=== PATIENT | male | born 2000 | race Two or more races ===

== ENCOUNTER 2023-05-15 15:01 | Inpatient (IN) | payer MEDICAID, OTHER ==
[~2023-05-15] VITALS: Ht 172.7 cm; Wt 64.6 kg
[2023-05-15] MEDS ORDERED: SERT-439 PO (15:26)
[2023-05-15] MEDS ORDERED: LORA-999 PO (15:26)
[2023-05-15] MEDS ORDERED: QUET200T30 PO (15:26)
[2023-05-15] MEDS ORDERED: OMEP20CA12 PO (15:26)
[2023-05-15] MEDS ORDERED: MIRT-92 PO (15:26)
[2023-05-15] MEDS ORDERED: MONT-40 PO (15:26)
[2023-05-15] MEDS ORDERED: RISP3TAB35 PO (15:26)
[2023-05-15] MEDS ORDERED: DIVA-85 PO ×2 (15:26)
[2023-05-15 15:48] LABS: BASOPHILS % (AUTO) 0.8 % (0.0-2.0); EOSINOPHILS % (AUTO) 0.5 % (1.0-6.0); HEMATOCRIT 37.3 % (41-53); HEMOGLOBIN 13.3 g/dL (13.5-17.5); LYMPHOCYTES # (AUTO) 1.6 K/uL (1.0-4.8); LYMPHOCYTES % (AUTO) 37.4 % (22.0-44.0); MEAN CORPUSCULAR HEMOGLOBIN 34.2 pg (26.0-34.0); MEAN CORPUSCULAR HGB CONC 35.8 G/dL (31.0-37.0); MEAN CORPUSCULAR VOLUME 96 fL (80-100); MONOCYTES # (AUTO) 0.4 K/uL (0.1-1.0); MONOCYTES % (AUTO) 9.6 % (2.0-9.0); NEUTROPHILS # (AUTO) 2.2 K/uL (1.8-7.7); NEUTROPHILS % (AUTO) 51.7 % (40.0-70.0); PLATELET COUNT (AUTO) 159 K/uL (150-450); RED BLOOD CELL COUNT(AUTO) 3.91 MIL/uL (4.50-5.90); WHITE BLOOD COUNT (AUTO) 4.3 K/uL (4.5-11.0)
[2023-05-15 15:56] LABS: ANION GAP 11 mmol/L (8-16); CALCIUM, TOTAL 9.2 mg/dL (8.8-10.5); CARBON DIOXIDE 26 mmol/L (22-29); CHLORIDE 104 mmol/L (98-107); CREATININE 0.91 mg/dL (0.60-1.30); GLOMERULAR FILTR. RATE CALC > 60 mL/min (>60); GLUCOSE,RANDOM 156 mg/dL (70-110); POTASSIUM 3.2 mmol/L (3.5-5.1); SODIUM SERUM 141 mmol/L (136-145); UREA NITROGEN, BLOOD 7 mg/dL (7-18)
[2023-05-15 15:57] LABS: ALCOHOL, BLOOD (SERUM) < 3 mg/dL (0-10)
[2023-05-15 16:04] LABS: ALANINE AMINOTRANSFERASE 24 U/L (12-78); ALBUMIN 3.7 g/dL (3.4-5.0); ALKALINE PHOSPHATASE 70 U/L (46-116); ASPARTATE AMINOTRANSFERASE 15 U/L (15-37); BILIRUBIN,TOTAL 0.3 mg/dL (0.1-1.0)
[2023-05-15 17:03] LABS: PH,URINE DRUG SCREEN 6.5 (5.0-8.0)
[2023-05-15 17:10] LABS: ALCOHOL, URINE DRUG SCREEN NEGATIVE (NEGATIVE); AMPHET/METH SCREEN,URINE NEGATIVE (NEGATIVE); BARBITURATE SCREEN, URINE NEGATIVE (NEGATIVE); BENZODIAZEPINES SCREEN,URINE NEGATIVE (NEGATIVE); CANNABINOID SCREEN,URINE NEGATIVE (NEGATIVE); COCAINE SCREEN,URINE NEGATIVE (NEGATIVE); METHADONE SCREEN, URINE NEGATIVE (NEGATIVE); OPIATE SCREEN,URINE NEGATIVE (NEGATIVE); PHENCYCLIDINE SCREEN,URINE NEGATIVE (NEGATIVE)
[2023-05-15] MEDS: POTASSIUM CHLORIDE 20 MEQ ER TABLET PO ONE (18:55)
[2023-05-15 19:27] LABS: COVID AG,FIA SOURCE NASAL SWAB
[2023-05-15 19:29] LABS: APPEARANCE,URINE CLEAR (CLEAR); BILIRUBIN,URINE NEGATIVE (NEGATIVE); COLOR,URINE COLORLESS (YELLOW); GLUCOSE, URINE (UA) NEGATIVE (NEGATIVE); KETONES,URINE NEGATIVE (NEGATIVE); LEUKOCYTE ESTERASE ,URINE NEGATIVE (NEGATIVE); NITRATE,URINE NEGATIVE (NEGATIVE); OCCULT BLOOD,URINE NEGATIVE (NEGATIVE); PROTEIN,URINE NEGATIVE (NEGATIVE); UROBILINOGEN,URINE <=1.0 mg/dL (<=1.0)
[2023-05-15 19:57] LABS: SARS-COV2 (COVID) ANTIGEN,FIA Negative (Negative)
[2023-05-16] MEDS: ZOLPIDEM TARTRATE 10 MG TABLET PO PRN (00:16)
[2023-05-16] MEDS: HALOPERIDOL 5 MG TABLET PO PRN (00:17)
[2023-05-16] MEDS: LORazepam 2 MG TABLET PO PRN (00:17)
[2023-05-16] MEDS ORDERED: DIVA500T53 PO ×2 (14:39)
[2023-05-16] MEDS: DIVALPROEX SODIUM 500 MG ER TABLET PO ONE (16:15)
[2023-05-16] MEDS: SERTRALINE HCL 50 MG TABLET PO ONE (16:15)
[2023-05-16] MEDS: RisperiDONE 1 MG TABLET PO ONE (16:15)
[2023-05-17] MEDS: QUEtiapine FUMARATE 100 MG TABLET PO ONE (00:11)
[2023-05-17] MEDS: POTASSIUM CHLORIDE 20 MEQ ER TABLET PO ONE (00:12)
[2023-05-17] MEDS: DIVALPROEX SODIUM 500 MG ER TABLET PO ONE (00:12)
[2023-05-17] MEDS: RisperiDONE 1 MG TABLET PO ONE (00:12)
[2023-05-17 03:38] VITALS: BP 113/82; PULSE 125; RESP 16; TEMP 97.1; O2SAT 97
[2023-05-17] MEDS ORDERED: PETROLATUM,WHITE 28 GM JELLY TP PRN (07:15)
[2023-05-17] MEDS ORDERED: DOCUSATE SODIUM 100 MG CAPSULE PO PRN (07:15)
[2023-05-17] MEDS ORDERED: CloNIDine HCL 0.1 MG TABLET PO PRN (07:15)
[2023-05-17] MEDS ORDERED: LOPERAMIDE HCL 2 MG CAPSULE PO PRN (07:15)
[2023-05-17] MEDS ORDERED: MAGNESIUM HYDROXIDE SUSPENSION 30 ML UDCUP PO PRN (07:15)
[2023-05-17] MEDS ORDERED: ALBUTEROL SULFATE HFA 90 MCG/PUFF 8 GM INHALER IH PRN (07:15)
[2023-05-17] MEDS ORDERED: NICOTINE 14 MG/24 HOUR PATCH TD PRN (07:15)
[2023-05-17] MEDS ORDERED: GuaiFENesin/D-METHORPHAN [SUGAR-FREE] 200-20MG/10 ML SYRUP UDCUP PO PRN (07:15)
[2023-05-17] MEDS ORDERED: ACETAMINOPHEN 325 MG TABLET PO PRN (07:15)
[2023-05-17] MEDS ORDERED: IBUPROFEN 400 MG TABLET PO PRN (07:15)
[2023-05-17] MEDS ORDERED: MAG HYDROX/ALUMINUM HYD/SIMETH ES 30 ML SUSPENSION UDCUP PO PRN (07:15)
[2023-05-17] MEDS ORDERED: ONDANSETRON HCL 4 MG TABLET PO PRN (07:15)
[2023-05-17 08:25] VITALS: BP 101/56; PULSE 92; RESP 18; TEMP 97.9; O2SAT 99
[2023-05-17] MEDS ORDERED: MONTELUKAST SODIUM 10 MG TABLET PO SCH (09:00)
[2023-05-17] MEDS: MONTELUKAST SODIUM 10 MG TABLET PO SCH (09:00)
[2023-05-17] MEDS: SERTRALINE HCL 50 MG TABLET PO SCH (12:00)
[2023-05-17] MEDS: DIVALPROEX SODIUM 500 MG ER TABLET PO SCH ×2 (12:00→21:05)
[2023-05-17] MEDS: LORazepam 0.5 MG TABLET PO SCH (12:19)
[2023-05-17] MEDS: RisperiDONE 3 MG TABLET PO SCH (16:41)
[2023-05-17] MEDS: MIRTAZAPINE 15 MG TABLET PO SCH (21:05)
[2023-05-17] MEDS: QUEtiapine FUMARATE 200 MG TABLET PO SCH (21:06)
[2023-05-17 21:20] VITALS: BP 118/67; PULSE 70; RESP 16; TEMP 97.8; O2SAT 99
[2023-05-18 08:38] LABS: HEMOGLOBIN A1C 4.9 % (3.8-5.6)
[2023-05-18 09:00] VITALS: BP 116/71; PULSE 120; RESP 18; TEMP 98.4; O2SAT 97
[2023-05-18 09:28] LABS: CHOL/HDL RATIO 2.3 (4.2-7.3); THYROID STIMULATING HORMONE 1.54 uIU/mL (0.36-3.74)
[2023-05-18 10:00] VITALS: BP 111/75; PULSE 111; RESP 18; TEMP 98.2; O2SAT 98
[2023-05-18 20:24] VITALS: BP 129/76; PULSE 86; RESP 19; TEMP 97.6; O2SAT 99
[2023-05-19 08:09] VITALS: BP 110/69; PULSE 103; RESP 18; TEMP 97.9; O2SAT 100
[2023-05-19] MEDS ORDERED: MIRT-89 PO (11:25)
[2023-05-19] MEDS ORDERED: QUET200T30 PO (11:25)
[2023-05-19] MEDS ORDERED: LORA-999 PO (11:25)
[2023-05-19] MEDS ORDERED: MONT-35 PO (11:25)
[2023-05-19] MEDS ORDERED: DIVA500T69 PO ×2 (11:25)
[2023-05-19] MEDS ORDERED: RISP3TAB77 PO (11:26)
[2023-05-19] MEDS ORDERED: SERT-439 PO (11:26)
== END 2023-05-19 18:35 | disposition home or self-care (01) | DRG 750 ==
LOC: EMS 15:06 → B3A 05-17 00:04 → EMS 05-17 02:05 → B3A 05-17 02:05
PROVIDERS: ADMIT Psychiatry & Neurology Psychiatry; ATTEND Psychiatry & Neurology Psychiatry
PROC: GZHZZZZ Group Psychotherapy (ICD-10-PCS; principal; 2023-05-19)
PROC: GZ51ZZZ Individual Psychotherapy, Behavioral (ICD-10-PCS; 2023-05-19)
DX: F25.0 Schizoaffective disorder, bipolar type (principal); F79 Unspecified intellectual disabilities; E87.6 Hypokalemia; F84.0 Autistic disorder; Z20.822 Contact with and (suspected) exposure to COVID-19; F41.9 Anxiety disorder, unspecified; G47.00 Insomnia, unspecified; Z79.899 Other long term (current) drug therapy; Z91.010 Allergy to peanuts
CPT/HCPCS: 80053; 80061; 80307; 81003; 83036; 84443; 85025; 99285; G0480

== ENCOUNTER 2023-07-18 19:11 | Inpatient (IN) | payer MEDICAID ==
[~2023-07-18] VITALS: Ht 172.7 cm; Wt 63.6 kg
[~2023-07-18 19:11] MED LIST: DIVA500T69 PO; MIRT-89 PO; MONT-35 PO; QUET200T30 PO; RISP3TAB77 PO; SERT-439 PO
[2023-07-18] MEDS ORDERED: ZOLPIDEM TARTRATE 10 MG TABLET PO PRN (19:30)
[2023-07-18 19:45] LABS: GLUCOMETER DEV NAME(LOC) POC.BV; POC SARS-COV2 AG, FIA NEGATIVE (NEGATIVE)
[2023-07-18 22:32] VITALS: BP 128/79; PULSE 100; RESP 18; TEMP 97.8; O2SAT 99
[2023-07-19] MEDS: HALOPERIDOL 5 MG TABLET PO PRN (07:48)
[2023-07-19] MEDS: LORazepam 2 MG TABLET PO PRN (07:48)
[2023-07-19 08:18] LABS: BASOPHILS % (AUTO) 0.7 % (0.0-2.0); EOSINOPHILS % (AUTO) 0.9 % (1.0-6.0); HEMATOCRIT 41.7 % (41-53); HEMOGLOBIN 14.6 g/dL (13.5-17.5); LYMPHOCYTES # (AUTO) 1.8 K/uL (1.0-4.8); LYMPHOCYTES % (AUTO) 36.6 % (22.0-44.0); MEAN CORPUSCULAR HGB CONC 35.1 G/dL (31.0-37.0); MEAN CORPUSCULAR VOLUME 91 fL (80-100); MONOCYTES # (AUTO) 0.6 K/uL (0.1-1.0); MONOCYTES % (AUTO) 11.4 % (2.0-9.0); NEUTROPHILS # (AUTO) 2.5 K/uL (1.8-7.7); NEUTROPHILS % (AUTO) 50.4 % (40.0-70.0); PLATELET COUNT (AUTO) 159 K/uL (150-450); RED BLOOD CELL COUNT(AUTO) 4.58 MIL/uL (4.50-5.90); RED CELL DISTRIBUTION WIDTH 12.1 % (11.5-14.5)
[2023-07-19 08:31] LABS: ALANINE AMINOTRANSFERASE 16 U/L (12-78); ALKALINE PHOSPHATASE 94 U/L (46-116); ANION GAP 12 mmol/L (8-16); ASPARTATE AMINOTRANSFERASE 18 U/L (15-37); BILIRUBIN,TOTAL 0.5 mg/dL (0.1-1.0); CARBON DIOXIDE 24 mmol/L (22-29); CHLORIDE 101 mmol/L (98-107); CHOL/HDL RATIO 2.4 (4.2-7.3); CHOLESTEROL 138 mg/dL (131-200); GLOMERULAR FILTR. RATE CALC > 60 mL/min (>60); GLUCOSE,RANDOM 114 mg/dL (70-110); HDL CHOLESTEROL 58 mg/dL (40-60); LDL CHOL (CALC.) 70 mg/dL (0-130); POTASSIUM 3.5 mmol/L (3.5-5.1); SODIUM SERUM 137 mmol/L (136-145); TOTAL PROTEIN, SERUM 7.4 g/dL (6.4-8.2); TRIGLYCERIDES 48 mg/dL (15-150); UREA NITROGEN, BLOOD 9 mg/dL (7-18)
[2023-07-19 08:48] VITALS: BP 118/79; PULSE 87; RESP 19; TEMP 98.7; O2SAT 97
[2023-07-19 08:52] LABS: FREE T4 (FREE THYROXINE) 0.81 ng/dL (0.76-1.46); T4 (THYROXINE) 4.7 mcg/dL (4.7-13.3); THYROID STIMULATING HORMONE 4.63 uIU/mL (0.36-3.74)
[2023-07-19] MEDS ORDERED: PETROLATUM,WHITE 28 GM JELLY TP PRN (10:45)
[2023-07-19] MEDS ORDERED: IBUPROFEN 400 MG TABLET PO PRN (10:45)
[2023-07-19] MEDS ORDERED: NICOTINE 14 MG/24 HOUR PATCH TD PRN (10:45)
[2023-07-19] MEDS ORDERED: LOPERAMIDE HCL 2 MG CAPSULE PO PRN (10:45)
[2023-07-19] MEDS ORDERED: ONDANSETRON HCL 4 MG TABLET PO PRN (10:45)
[2023-07-19] MEDS ORDERED: MAG HYDROX/ALUMINUM HYD/SIMETH ES 30 ML SUSPENSION UDCUP PO PRN (10:45)
[2023-07-19] MEDS ORDERED: DOCUSATE SODIUM 100 MG CAPSULE PO PRN (10:45)
[2023-07-19] MEDS ORDERED: ALBUTEROL SULFATE HFA 90 MCG/PUFF 8 GM INHALER IH PRN (10:45)
[2023-07-19] MEDS ORDERED: MAGNESIUM HYDROXIDE SUSPENSION 30 ML UDCUP PO PRN (10:45)
[2023-07-19] MEDS ORDERED: GuaiFENesin/D-METHORPHAN [SUGAR-FREE] 200-20MG/10 ML SYRUP UDCUP PO PRN (10:45)
[2023-07-19] MEDS ORDERED: CloNIDine HCL 0.1 MG TABLET PO PRN (10:45)
[2023-07-19] MEDS: RisperiDONE 3 MG TABLET PO SCH (10:46)
[2023-07-19] MEDS: SERTRALINE HCL 50 MG TABLET PO SCH (10:46)
[2023-07-19] MEDS: QUEtiapine FUMARATE 200 MG TABLET PO SCH (10:46)
[2023-07-19] MEDS: LORazepam 1 MG TABLET PO SCH (10:46)
[2023-07-19] MEDS: GABAPENTIN 300 MG CAPSULE PO SCH ×2 (10:46→21:07)
[2023-07-19] MEDS ORDERED: PNEUMOCOCCAL VACCINE POLYVALENT 0.5 ML SYRINGE [PPSV23] IM. ONE (11:30)
[2023-07-19 20:49] VITALS: BP 121/74; PULSE 88; RESP 18; TEMP 98.2; O2SAT 98
[2023-07-19] MEDS: MIRTAZAPINE 15 MG TABLET PO SCH (21:08)
[2023-07-20] MEDS: MONTELUKAST SODIUM 10 MG TABLET PO SCH (08:05)
[2023-07-20 08:35] VITALS: BP 120/74; PULSE 95; RESP 15; TEMP 97.3; O2SAT 98
[2023-07-20 08:35] LABS: HEMOGLOBIN A1C 4.7 % (3.8-5.6)
[2023-07-20 08:52] LABS: CHOL/HDL RATIO 2.3 (4.2-7.3); THYROID STIMULATING HORMONE 2.62 uIU/mL (0.36-3.74)
[2023-07-20 20:26] VITALS: BP 100/59; PULSE 73; TEMP 97.8; O2SAT 99
[2023-07-21 08:08] VITALS: BP 105/74; PULSE 106; RESP 17; TEMP 98.3; O2SAT 100
[2023-07-21 20:42] VITALS: BP 106/63; PULSE 80; TEMP 98.7; O2SAT 98
[2023-07-22 08:11] VITALS: BP 104/60; PULSE 90; RESP 18; TEMP 98.3; O2SAT 100
[2023-07-22] MEDS: QUEtiapine FUMARATE 300 MG TABLET PO SCH (08:13)
[2023-07-22 20:24] VITALS: BP 124/80; PULSE 82; TEMP 97.5; O2SAT 99
[2023-07-23 08:38] VITALS: BP 103/62; PULSE 77; RESP 17; TEMP 97.7; O2SAT 100
[2023-07-23 20:43] VITALS: BP 102/69; PULSE 60; TEMP 98.2; O2SAT 96
[2023-07-24 09:11] VITALS: BP 110/72; PULSE 89; RESP 17; TEMP 98.4; O2SAT 99
[2023-07-24] MEDS: DIVALPROEX SODIUM 250 MG DR TABLET PO SCH (20:02)
[2023-07-24 20:23] VITALS: BP 115/78; PULSE 87; RESP 18; TEMP 98.4; O2SAT 98
[2023-07-25 08:27] LABS: APPEARANCE,URINE CLEAR (CLEAR); BILIRUBIN,URINE NEGATIVE (NEGATIVE); COLOR,URINE LIGHT YELLOW (YELLOW); GLUCOSE, URINE (UA) NEGATIVE (NEGATIVE); KETONES,URINE NEGATIVE (NEGATIVE); LEUKOCYTE ESTERASE ,URINE NEGATIVE (NEGATIVE); NITRATE,URINE NEGATIVE (NEGATIVE); OCCULT BLOOD,URINE NEGATIVE (NEGATIVE); PH,URINE 5.5 (5.0-8.0); PH,URINE DRUG SCREEN 5.5 (5.0-8.0); PROTEIN,URINE NEGATIVE (NEGATIVE); SPECIFIC GRAVITIY, URINE 1.016 (1.003-1.030); UROBILINOGEN,URINE <=1.0 mg/dL (<=1.0)
[2023-07-25 08:36] LABS: ALCOHOL, URINE DRUG SCREEN NEGATIVE (NEGATIVE); AMPHET/METH SCREEN,URINE NEGATIVE (NEGATIVE); BARBITURATE SCREEN, URINE NEGATIVE (NEGATIVE); BENZODIAZEPINES SCREEN,URINE NEGATIVE (NEGATIVE); CANNABINOID SCREEN,URINE NEGATIVE (NEGATIVE); COCAINE SCREEN,URINE NEGATIVE (NEGATIVE); METHADONE SCREEN, URINE NEGATIVE (NEGATIVE); OPIATE SCREEN,URINE NEGATIVE (NEGATIVE); PHENCYCLIDINE SCREEN,URINE NEGATIVE (NEGATIVE)
[2023-07-25 08:51] VITALS: BP 115/70; PULSE 73; RESP 18; TEMP 97.6; O2SAT 100
[2023-07-25 20:20] VITALS: BP 113/70; PULSE 87; RESP 17; TEMP 97.3; O2SAT 98
[2023-07-26 08:15] VITALS: BP 115/75; PULSE 90; RESP 17; TEMP 98; O2SAT 100
[2023-07-26 21:02] VITALS: BP 104/66; PULSE 67; RESP 16; TEMP 98.4; O2SAT 98
[2023-07-27 08:20] VITALS: BP 119/80; PULSE 100; RESP 17; TEMP 98.2; O2SAT 97
[2023-07-27 20:07] VITALS: BP 117/75; PULSE 95; RESP 18; TEMP 98.2
[2023-07-28 08:49] VITALS: BP 116/78; PULSE 98; RESP 17; TEMP 97.9
[2023-07-28 20:32] VITALS: BP 86/102; PULSE 86; TEMP 97.8; O2SAT 100
[2023-07-29 08:12] VITALS: BP 99/71; PULSE 85; RESP 16; TEMP 97.4; O2SAT 100
[2023-07-29 20:44] VITALS: BP 103/77; PULSE 98; TEMP 97.9; O2SAT 98
[2023-07-30 08:31] VITALS: BP 130/60; PULSE 111; RESP 18; TEMP 98.1; O2SAT 98
[2023-07-30] MEDS ORDERED: DIVALPROEX SODIUM 500 MG DR TABLET PO SCH (21:00)
[2023-07-30 21:32] VITALS: BP 129/75; PULSE 89; RESP 18; TEMP 98.4
[2023-07-31 08:22] VITALS: BP 117/78; PULSE 92; RESP 14; TEMP 97.3; O2SAT 100
[2023-07-31] MEDS: DIVALPROEX SODIUM 500 MG DR TABLET PO SCH (11:00)
[2023-07-31] MEDS: ACETAMINOPHEN 325 MG TABLET PO PRN (11:01)
[2023-07-31 20:55] VITALS: BP 123/79; PULSE 95; TEMP 97.8; O2SAT 100
[2023-08-01 08:48] VITALS: BP 105/64; PULSE 96; RESP 17; TEMP 97; O2SAT 100
[2023-08-02 02:13] VITALS: BP 118/62; PULSE 92; RESP 18; TEMP 98; O2SAT 98
[2023-08-02 09:27] VITALS: BP 121/62; PULSE 80; RESP 18; TEMP 98.2; O2SAT 96
[2023-08-02] MEDS ORDERED: GABA-1181 PO ×2 (10:27)
[2023-08-02] MEDS ORDERED: LORA-1000 PO (10:27)
[2023-08-02] MEDS ORDERED: QUET300T19 PO (10:27)
[2023-08-02] MEDS ORDERED: MIRT-89 PO (10:27)
[2023-08-02] MEDS ORDERED: RISP3TAB35 PO (10:27)
[2023-08-02] MEDS ORDERED: SERT-439 PO (10:27)
[2023-08-02 16:45] VITALS: BP 114/65; PULSE 114; RESP 18; TEMP 98.4; O2SAT 97
[2023-08-02 17:46] VITALS: RESP 17; O2SAT 96
== END 2023-08-02 18:23 | disposition home or self-care (01) | DRG 750 ==
LOC: B3A 19:15
PROVIDERS: ADMIT Psychiatry & Neurology Psychiatry; ATTEND Psychiatry & Neurology Psychiatry
PROC: GZHZZZZ Group Psychotherapy (ICD-10-PCS; principal; 2023-07-19)
PROC: GZ52ZZZ Individual Psychotherapy, Cognitive (ICD-10-PCS; 2023-07-19)
DX: F25.0 Schizoaffective disorder, bipolar type (principal); F79 Unspecified intellectual disabilities; F84.0 Autistic disorder; G47.00 Insomnia, unspecified; Z20.822 Contact with and (suspected) exposure to COVID-19; W13.4XXA Fall from, out of or through window, initial encounter; Y93.39 Activity, other involving climbing, rappelling and jumping off; Z79.899 Other long term (current) drug therapy; Z88.0 Allergy status to penicillin; Z91.010 Allergy to peanuts
CPT/HCPCS: 80053; 80061; 80164; 80307; 81003; 83036; 84436; 84439; 84443; 85025; 86592

== ENCOUNTER 2023-07-30 15:13 | Emergency (ER) | payer MEDICAID, OTHER ==
[~2023-07-30] VITALS: Ht 170.2 cm; Wt 64.0 kg
[~2023-07-30 15:13] MED LIST changes: -DIVA500T69 PO
[2023-07-30 16:33] VITALS: BP 134/71; PULSE 93; RESP 19; TEMP 98.4
[2023-07-30 17:20] LABS: BASOPHILS % (AUTO) 0.3 % (0.0-2.0); EOSINOPHILS % (AUTO) 0.3 % (1.0-6.0); HEMATOCRIT 43.5 % (41-53); LYMPHOCYTES # (AUTO) 1.4 K/uL (1.0-4.8); LYMPHOCYTES % (AUTO) 28.9 % (22.0-44.0); MEAN CORPUSCULAR HEMOGLOBIN 31.2 pg (26.0-34.0); MEAN CORPUSCULAR HGB CONC 34.4 G/dL (31.0-37.0); MEAN CORPUSCULAR VOLUME 91 fL (80-100); MONOCYTES # (AUTO) 0.5 K/uL (0.1-1.0); MONOCYTES % (AUTO) 10.8 % (2.0-9.0); NEUTROPHILS # (AUTO) 2.8 K/uL (1.8-7.7); NEUTROPHILS % (AUTO) 59.7 % (40.0-70.0); PLATELET COUNT (AUTO) 152 K/uL (150-450); RED BLOOD CELL COUNT(AUTO) 4.81 MIL/uL (4.50-5.90); RED CELL DISTRIBUTION WIDTH 12.2 % (11.5-14.5); WHITE BLOOD COUNT (AUTO) 4.7 K/uL (4.5-11.0)
[2023-07-30 17:30] LABS: ANION GAP 10 mmol/L (8-16); CALCIUM, TOTAL 8.8 mg/dL (8.8-10.5); CARBON DIOXIDE 27 mmol/L (22-29); CHLORIDE 107 mmol/L (98-107); CREATININE 0.98 mg/dL (0.60-1.30); GLOMERULAR FILTR. RATE CALC > 60 mL/min (>60); GLUCOSE,RANDOM 99 mg/dL (70-110); POTASSIUM 3.8 mmol/L (3.5-5.1); SODIUM SERUM 144 mmol/L (136-145); UREA NITROGEN, BLOOD 10 mg/dL (7-18)
[2023-07-30 17:37] LABS: ALANINE AMINOTRANSFERASE 11 U/L (12-78); ALBUMIN 3.7 g/dL (3.4-5.0); ALKALINE PHOSPHATASE 93 U/L (46-116); ASPARTATE AMINOTRANSFERASE 13 U/L (15-37); BILIRUBIN,TOTAL 0.3 mg/dL (0.1-1.0); TOTAL PROTEIN, SERUM 6.9 g/dL (6.4-8.2)
== END 2023-07-30 20:29 ==
LOC: EMS 15:36
DX: S09.90XA Unspecified injury of head, initial encounter (principal); F84.0 Autistic disorder; F79 Unspecified intellectual disabilities; Z88.0 Allergy status to penicillin; Z91.010 Allergy to peanuts; X58.XXXA Exposure to other specified factors, initial encounter; Y93.89 Activity, other specified; Y92.89 Other specified places as the place of occurrence of the external cause; Y99.8 Other external cause status
CPT/HCPCS: 70450; 70486; 72125; 80053; 85025; 99284

== ENCOUNTER 2023-08-05 14:48 | Emergency (ER) | payer OTHER ==
[~2023-08-05] VITALS: Ht 167.6 cm; Wt 75.0 kg
[~2023-08-05 14:48] MED LIST changes: +GABA-1181 PO; +LORA-1000 PO; -QUET200T30 PO; +QUET300T19 PO; +RISP3TAB35 PO; -RISP3TAB77 PO
[2023-08-05 14:58] VITALS: BP 121/79; PULSE 118; RESP 18; TEMP 97.3
[2023-08-05] MEDS: ACETAMINOPHEN 500 MG TABLET PO ONE (17:53)
[2023-08-05] MEDS ORDERED: MONT-40 PO (17:53)
[2023-08-05] MEDS: BACITRACIN 0.9 GM PACKET OINTMENT TP ONE (17:53)
[2023-08-05] MEDS ORDERED: OMEP20CA12 PO (17:53)
[2023-08-05] MEDS: LIDOCAINE 1% 10 ML VIAL SQ ONE (17:53)
[2023-08-05] MEDS ORDERED: RISP120S IM (17:53)
[2023-08-05] MEDS: PERTUSS(ACELL),DIPH,TET/PF 0.5 ML SYRINGE [ADULT] IM. ONE (17:57)
== END 2023-08-05 18:40 | disposition home or self-care (01) ==
LOC: EMS 14:48
DX: S01.81XA Laceration without foreign body of other part of head, initial encounter (principal); F25.0 Schizoaffective disorder, bipolar type; F84.0 Autistic disorder; F79 Unspecified intellectual disabilities; Z88.0 Allergy status to penicillin; Z91.010 Allergy to peanuts; X58.XXXA Exposure to other specified factors, initial encounter; Y93.89 Activity, other specified; Y92.89 Other specified places as the place of occurrence of the external cause; Y99.8 Other external cause status
CPT/HCPCS: 99283; 90715; 90471; 12013; J3490

== ENCOUNTER 2023-08-29 17:06 | Inpatient (IN) | payer MEDICAID, OTHER ==
[~2023-08-29] VITALS: Ht 165.1 cm; Wt 64.4 kg
[~2023-08-29 17:06] MED LIST changes: +OMEP20CA12 PO; +RISP120S IM
[2023-08-29] MEDS: QUEtiapine FUMARATE 100 MG TABLET PO ONE (20:09)
[2023-08-29] MEDS: LORazepam 2 MG TABLET PO ONE (20:10)
[2023-08-29] MEDS: RisperiDONE 1 MG TABLET PO ONE (20:10)
[2023-08-29 20:13] LABS: BASOPHILS % (AUTO) 0.3 % (0.0-2.0); EOSINOPHILS % (AUTO) 0.1 % (1.0-6.0); HEMATOCRIT 40.6 % (41-53); HEMOGLOBIN 14.2 g/dL (13.5-17.5); LYMPHOCYTES # (AUTO) 1.9 K/uL (1.0-4.8); LYMPHOCYTES % (AUTO) 23.9 % (22.0-44.0); MEAN CORPUSCULAR HEMOGLOBIN 31.3 pg (26.0-34.0); MEAN CORPUSCULAR HGB CONC 34.9 G/dL (31.0-37.0); MEAN CORPUSCULAR VOLUME 90 fL (80-100); MONOCYTES # (AUTO) 0.7 K/uL (0.1-1.0); NEUTROPHILS # (AUTO) 5.3 K/uL (1.8-7.7); NEUTROPHILS % (AUTO) 66.7 % (40.0-70.0); PLATELET COUNT (AUTO) 200 K/uL (150-450); RED BLOOD CELL COUNT(AUTO) 4.52 MIL/uL (4.50-5.90); RED CELL DISTRIBUTION WIDTH 13.4 % (11.5-14.5); WHITE BLOOD COUNT (AUTO) 7.9 K/uL (4.5-11.0)
[2023-08-29 20:22] LABS: ANION GAP 11 mmol/L (8-16); CALCIUM, TOTAL 9.2 mg/dL (8.8-10.5); CARBON DIOXIDE 24 mmol/L (22-29); CHLORIDE 106 mmol/L (98-107); CREATININE 0.93 mg/dL (0.60-1.30); GLOMERULAR FILTR. RATE CALC > 60 mL/min (>60); GLUCOSE,RANDOM 109 mg/dL (70-110); POTASSIUM 3.3 mmol/L (3.5-5.1); SODIUM SERUM 141 mmol/L (136-145); UREA NITROGEN, BLOOD 10 mg/dL (7-18)
[2023-08-29 20:24] LABS: COVID AG,FIA SOURCE NASAL SWAB
[2023-08-29 20:33] LABS: ALCOHOL, BLOOD (SERUM) < 3 mg/dL (0-10)
[2023-08-29 20:43] LABS: SARS-COV2 (COVID) ANTIGEN,FIA Negative (Negative)
[2023-08-30] MEDS ORDERED: ZOLPIDEM TARTRATE 10 MG TABLET PO PRN (01:00)
[2023-08-30 03:58] VITALS: BP 121/70; PULSE 96; RESP 18; TEMP 97.3; O2SAT 98
[2023-08-30] MEDS: LORazepam 2 MG TABLET PO PRN (04:24)
[2023-08-30 08:00] VITALS: BP 107/79; PULSE 97; RESP 16; TEMP 98.2; O2SAT 97
[2023-08-30 09:30] LABS: HEMOGLOBIN A1C 4.8 % (3.8-5.6)
[2023-08-30 09:37] LABS: CHOL/HDL RATIO 2.4 (4.2-7.3); POTASSIUM 3.5 mmol/L (3.5-5.1); THYROID STIMULATING HORMONE 2.71 uIU/mL (0.36-3.74)
[2023-08-30] MEDS: HALOPERIDOL 5 MG TABLET PO PRN (12:34)
[2023-08-30] MEDS: MONTELUKAST SODIUM 10 MG TABLET PO SCH (14:45)
[2023-08-30] MEDS: LORazepam 1 MG TABLET PO SCH (16:01)
[2023-08-30] MEDS: GABAPENTIN 300 MG CAPSULE PO SCH (16:01)
[2023-08-30] MEDS ORDERED: MAGNESIUM HYDROXIDE SUSPENSION 30 ML UDCUP PO PRN (19:15)
[2023-08-30] MEDS ORDERED: BENZOCAINE/MENTHOL LOZENGE PO PRN (19:15)
[2023-08-30] MEDS ORDERED: ALBUTEROL SULFATE HFA 90 MCG/PUFF 8 GM INHALER IH PRN (19:15)
[2023-08-30] MEDS ORDERED: LOPERAMIDE HCL 2 MG CAPSULE PO PRN (19:15)
[2023-08-30] MEDS ORDERED: ACETAMINOPHEN 325 MG TABLET PO PRN (19:15)
[2023-08-30] MEDS ORDERED: IBUPROFEN 600 MG TABLET PO PRN (19:15)
[2023-08-30] MEDS ORDERED: BACITRACIN 28 GM OINTMENT TP PRN (19:15)
[2023-08-30] MEDS ORDERED: DOCUSATE SODIUM 100 MG CAPSULE PO PRN (19:15)
[2023-08-30] MEDS ORDERED: CloNIDine HCL 0.1 MG TABLET PO PRN (19:15)
[2023-08-30] MEDS ORDERED: OMEPRAZOLE 20 MG CAPSULE PO PRN (19:15)
[2023-08-30] MEDS ORDERED: PETROLATUM,WHITE 28 GM JELLY TP PRN (19:15)
[2023-08-30] MEDS: MIRTAZAPINE 15 MG TABLET PO SCH (20:18)
[2023-08-30 21:11] VITALS: BP 130/80; PULSE 99; RESP 18; TEMP 98.4; O2SAT 99
[2023-08-31] MEDS: OMEPRAZOLE 20 MG CAPSULE PO SCH (08:10)
[2023-08-31] MEDS: MAG HYDROX/ALUMINUM HYD/SIMETH ES 30 ML SUSPENSION UDCUP PO PRN (08:28)
[2023-08-31 08:29] VITALS: BP 112/80; PULSE 107; RESP 18; TEMP 91.2; O2SAT 100
[2023-08-31] MEDS: ETHYL ALCOHOL 62% ANTISEPTIC NASAL SANITIZER 0.6 ML AMPUL NASAL SCH (21:00)
[2023-08-31 21:08] VITALS: BP 123/69; PULSE 102; RESP 20; TEMP 98.6; O2SAT 96
[2023-08-31] MEDS: CHLORHEXIDINE GLUCONATE 2% TOWELETTE [2'S/6'S] TP SCH (22:56)
[2023-09-01] MEDS: ONDANSETRON HCL 4 MG TABLET PO PRN (06:45)
[2023-09-01 08:39] VITALS: BP 111/81; PULSE 105; RESP 17; TEMP 97.5; O2SAT 97
[2023-09-01 20:34] VITALS: BP 130/71; PULSE 89; RESP 17; TEMP 98.9
[2023-09-02] MEDS ORDERED: OMEP20 PO (08:21)
[2023-09-02 10:40] VITALS: BP 140/72; PULSE 99; RESP 18; TEMP 92.1; O2SAT 96
[2023-09-02] MEDS ORDERED: LORA-1000 PO (17:35)
[2023-09-02] MEDS ORDERED: GABA-1181 PO (17:35)
[2023-09-02] MEDS ORDERED: MIRT-89 PO (17:35)
== END 2023-09-02 10:53 | disposition home or self-care (01) | DRG 750 ==
LOC: EMS 17:06 → B3A 08-30 00:42
PROVIDERS: ADMIT Psychiatry & Neurology Psychiatry; ATTEND Psychiatry & Neurology Psychiatry
DX: F25.0 Schizoaffective disorder, bipolar type (principal); F79 Unspecified intellectual disabilities; F41.9 Anxiety disorder, unspecified; F84.0 Autistic disorder; G47.00 Insomnia, unspecified; K59.00 Constipation, unspecified; Z20.822 Contact with and (suspected) exposure to COVID-19; Z88.0 Allergy status to penicillin; Z91.010 Allergy to peanuts
CPT/HCPCS: 80048; 80061; 83036; 84132; 84443; 85025; 87081; G0480; Q0162